=== PATIENT | female | born 1970 | race Caucasian/White ===

== ENCOUNTER → 2020-03-26 12:13 | Outpatient (BNVA) | payer BC, SELFPAY | PROVIDERS: Visit Provider Nurse Practitioner Family | DX: R25.2 Cramp and spasm (principal); I83.91 Asymptomatic varicose veins of right lower extremity | CPT/HCPCS: 80053; 82607; 83735; 85025 ==

== ENCOUNTER → 2021-09-09 10:28 | Outpatient (BNVA) | payer BC, SELFPAY | PROVIDERS: Visit Provider Nurse Practitioner | DX: Z00.00 Encounter for general adult medical examination without abnormal findings (principal); Z13.6 Encounter for screening for cardiovascular disorders; Z20.822 Contact with and (suspected) exposure to COVID-19 | CPT/HCPCS: 80053; 80061; 85025; 87635 ==

== ENCOUNTER 2021-09-29 07:47 | Outpatient (CLI) | payer BC, SELFPAY ==
--- NOTE | 2021-09-29 08:00 | MM_ITS ---
WS: [id number] SCREENING DIGITAL MAMMOGRAM WITH CAD HISTORY: Z12.39 - Encounter for other screening for malignant neoplasm COMPARISON: None available. Bilateral CC and MLO views submitted. Computer aided detection analyzed. Breast composition: The breasts are heterogeneously dense, which may obscure small masses. 7 mm parti ally obscured nodule in the medial RIGHT breast at a middle to posterior depth. Suspect this is at th e nipple line on the lateral projection. This nodule is obscured by adjacent soft tissue. No distorti on. Benign calcification in the LEFT breast. MM/[place] [id number] IMPRESSION: BI-RADS: 0-Incomplete: Need additional imaging evaluation FOLLOW UP: Need Additional Imaging RIGHT breast: Spot compression views (CC and MLO). True ML. Ultrasound to follo w if abnormality persists.
== END 2021-09-29 07:48 | disposition home or self-care (01) ==
LOC: RADSHAW 07:51
PROVIDERS: PCP Nurse Practitioner; Visit Provider Nurse Practitioner
DX: Z12.31 Encounter for screening mammogram for malignant neoplasm of breast (principal)
CPT/HCPCS: 77067

== ENCOUNTER 2021-10-14 11:00 | Outpatient (CLI) | payer BC, SELFPAY ==
--- NOTE | 2021-10-14 11:00 | MM_ITS ---
WS: [id number] ADDITIONAL VIEWS RIGHT BREAST RIGHT breast ultrasound, limited HISTORY: Additional imaging RIGHT breast from screening mammogram. COMPARISON: 09/29/2021 Compression views right CC and MLO projection. True ML also submitted. The nodular asymmetry in the mid to posterior medial RIGHT breast becomes less apparent with addition al views. This may be obscured by the dense breast tissue. Ultrasound to follow. RIGHT breast ultrasound, limited. In the RIGHT breast at 1:00 there is a well-circumscribed cyst at 2 cm from the nipple measuring 5 x 5 x 5 mm. This does not correspond in location to the mammographic abnormality. MM/[place] [id number] IMPRESSION: BI-RADS: 2-Benign FOLLOW-UP: 1 Year Follow-up The nodule described on the screening mammogram cannot definitely be re-created on the additional images. There is a cyst noted at 1:00 within the RIGHT breas t which may or may not correspond to the finding on the mammogram. No solid mas s identified.
--- NOTE | 2021-10-14 11:30 | US_ITS ---
WS: [id number] ADDITIONAL VIEWS RIGHT BREAST RIGHT breast ultrasound, limited HISTORY: Additional imaging RIGHT breast from screening mammogram. COMPARISON: 09/29/2021 Compression views right CC and MLO projection. True ML also submitted. The nodular asymmetry in the mid to posterior medial RIGHT breast becomes less apparent with addition al views. This may be obscured by the dense breast tissue. Ultrasound to follow. RIGHT breast ultrasound, limited. In the RIGHT breast at 1:00 there is a well-circumscribed cyst at 2 cm from the nipple measuring 5 x 5 x 5 mm. This does not correspond in location to the mammographic abnormality. US/US breast RT limited* [id number] IMPRESSION: BI-RADS: 2-Benign FOLLOW-UP: 1 Year Follow-up The nodule described on the screening mammogram cannot definitely be re-created on the additional images. There is a cyst noted at 1:00 within the RIGHT breas t which may or may not correspond to the finding on the mammogram. No solid mas s identified.
== END 2021-10-14 11:01 | disposition home or self-care (01) ==
LOC: RADSHAW 11:03
PROVIDERS: PCP Nurse Practitioner; Visit Provider Nurse Practitioner
DX: R92.8 Other abnormal and inconclusive findings on diagnostic imaging of breast (principal); N60.01 Solitary cyst of right breast
CPT/HCPCS: 76642; 77065

== ENCOUNTER → 2022-12-24 09:34 | Outpatient (BNVA) | payer BC, SELFPAY | PROVIDERS: PCP Nurse Practitioner; Visit Provider Nurse Practitioner Family | DX: R50.9 Fever, unspecified (principal); J01.40 Acute pansinusitis, unspecified | CPT/HCPCS: 87426 ==